=== PATIENT | male | born 1965 | race Caucasian/White ===

== ENCOUNTER 2017-03-30 08:01 | Emergency (ER) | payer BC ==
[~2017-03-30] VITALS: Ht 177.8 cm; Wt 171.1 kg
[~2017-03-30 08:01] MED LIST: ATEN-175 PO; HYDC25 PO
[2017-03-30 08:04] VITALS: TEMP 36.5; Ht 177.8 cm; Wt 171.1 kg
[2017-03-30] MEDS ORDERED: ATEN50TA8 PO (08:17)
[2017-03-30] MEDS ORDERED: HYDR25TA5 PO (08:17)
[2017-03-30] MEDS ORDERED: SODIUM CHLORIDE 0.9% 1000ML 1,000 ML IV ONE (08:30)
[2017-03-30 09:01] LABS: BASO % 0.3 %; BASO ABS # 0.02 K/uL (0-0.2); COMPLETE YES; EOS % 1.4 %; HEMATOCRIT 43.7 % (42-52); IG% 0.5 %; LYMPH % 25.5 %; LYMPH ABS # 1.46 K/uL (1.2-3.4); MEAN CELL VOLUME 85.9 fL (80-100); MEAN CORPUSCULAR HEMOGLOBIN 27.9 pg (25-34); MEAN CORPUSCULAR HGB CONC 32.5 g/dl (32-36); MEAN PLATELET VOLUME 9.1 fL (7.4-10.4); MONO % 10.3 %; PLATELET COUNT 127 K/uL (130-400); RED BLOOD COUNT 5.09 M/uL (4.7-6.1); WHITE BLOOD COUNT 5.72 K/uL (4.8-10.8)
[2017-03-30 09:10] LABS: PARTIAL THROMBOPLASTIN RATIO 1.1; PROTHROMBIN TIME (PATIENT) 10.8 SECONDS (9.0-12.0)
[2017-03-30 09:23] LABS: CALCIUM 8.8 mg/dl (8.5-10.1); CREATININE 0.97 mg/dl (0.60-1.40); POTASSIUM 3.8 mmol/L (3.5-5.1)
--- NOTE | 2017-03-30 09:40 | DIAGNOSTIC IMAGING REPORT ---
ULTRASOUND VENOUS DOPPLER ULTRASOUND OF THE LEFT LOWER EXTREMITY CLINICAL HISTORY: L lower leg redness and swelling COMPARISON STUDY: No previous studies for comparison. FINDINGS: Real-time and color flow Doppler imaging were performed. Flow was seen within the femoral, popliteal and calf veins with no intraluminal thrombus demonstrated. The saphenous vein is patent. IMPRESSION: No evidence of left lower extremity DVT. Electronically signed by: Yaya Thorne M.D. 03/30/2017 9:39 AM Dictated Date/Time: 03/30/2017 9:34 AM
[2017-03-30] MEDS ORDERED: CEFTRIAXONE SOD INJ 1 GM ADDVIAL IV STA (10:05)
[2017-03-30] MEDS ORDERED: CEPH500C2 PO (10:34)
[2017-03-30 11:26] VITALS: BP 143/80; PULSE 67; O2SAT 98
--- NOTE | 2017-03-30 16:07 | EMERGENCY ROOM VISIT NOTE ---
ED Visit Note First contact with patient: 08:11 Chief Complaint: I have swelling and redness of my left lower leg. History of Present Illness: Mr. Swain a 51-year-old white male who ambulates into the ED complaining of left lower leg swelling, redness and pain. Patient reports last evening approximately 8 PM, after his shower, 12 hours ago , he noted redness and swelling to the anterior and lateral aspect of the left lower leg. Since that time the symptoms have been constant and this morning he noted increase in swelling that is now down around the lateral malleolus. He denies any injuries to the leg. Associated with his redness and swelling he does report he has pain in the same area. He describes his pain as a deep achy sensation. He rates his discomfort 4/10. His pain is nonradiating. His pain worsens with palpation and ambulation. He does not identified any alleviating factors related to the pain. He has not taken any medications for pain prior to arrival at the hospital. He denies any associated symptoms including fevers, chills, sweats, upper respiratory tract symptoms, shortness of breath, chest pain, palpitations , abdominal pain, decreased appetite, nausea, vomiting, lower leg weakness/ numbness/tingling, recent surgery/extended travel, inactivity, previous clots, claudication, cramping. Review of Systems: As noted above in history of present illness. All body systems were reviewed and found to be negative as noted above. Past Medical History: Hypertension Current Medications: Atenolol, hydrochlorothiazide. Allergies to Medications: Patient denies. Social History: Patient is currently employed; he feels safe in his home environment; he denies tobacco use and admits to social alcohol use. Physical Examination: Vital Signs: Date Time Temp Pulse Resp B/P (MAP) Pulse Ox O2 Delivery O2 Flow Rate FiO2 03/30/17 11:26 67 143/80 98 03/30/17 09:04 70 20 151/75 96 Room Air 03/30/17 08:04 36.5 73 20 167/95 96 Room Air GENERAL: 51-year-old male in mild distress due to pain, nontoxic-appearing, afebrile and hemodynamically stable. NEUROLOGICAL: Awake, alert and oriented to person, place and time. Answering questions appropriately and following commands. Good hand eye coordination. SKIN: Warm, Dewayne and pink. Left Lower Leg: Shows a few superficial abrasions that patient does not remember having. The anterior and lateral aspect of the lower leg is erythematous and edematous without lymphangitis. The skin is warm to palpation. HEENT: Atraumatic and normocephalic. PERRLA. Sclera white and conjunctiva pink. Speech normal. No lymphadenopathy. Trachea midline. No jugular venous distention. THORAX: Lungs sounds are clear to auscultation and equal bilaterally with symmetrical chest wall. No wheezing, rales or rhonchi. No crepitus, tenderness , subcutaneous air or deformities noted. HEART: Regular rate and rhythm. No gallops, rubs or murmurs are appreciated. ABDOMEN: Obese, soft and nontender. Positive bowel sounds in all quadrants. No guarding, rigidity or organomegaly. EXTREMITIES: Moves all extremities well on command and with purpose. All distal neurovascular statuses are intact and equal bilaterally. Left Lower Extremity: Please note soft tissue description above under SKIN. No gross bony deformity. No tenderness in the hip, thigh, knee or foot. Mild calf tenderness without cords. Full range of motion at the hip, knee, ankle and foot. Distal pulses, capillary refill and sensation intact throughout the extremity. ED Course: Patient is assessed as noted above. Patient's medication list was reviewed. Laboratory Testing: Test 03/30/17 08:50 Range/Units White Blood Count 5.72 4.8-10.8 K/uL Red Blood Count 5.09 4.7-6.1 M/uL Hemoglobin 14.2 14.0-18.0 g/dL Hematocrit 43.7 42-52 % Mean Corpuscular Volume 85.9 80-100 fL Mean Corpuscular Hemoglobin 27.9 25-34 pg Mean Corpuscular Hemoglobin Concent 32.5 32-36 g/dl Platelet Count 127 130-400 K/uL Mean Platelet Volume 9.1 7.4-10.4 fL Neutrophils (%) (Auto) 62.0 % Lymphocytes (%) (Auto) 25.5 % Monocytes (%) (Auto) 10.3 % Eosinophils (%) (Auto) 1.4 % Basophils (%) (Auto) 0.3 % Neutrophils # (Auto) 3.54 1.4-6.5 K/uL Lymphocytes # (Auto) 1.46 1.2-3.4 K/uL Monocytes # (Auto) 0.59 0.11-0.59 K/uL Eosinophils # (Auto) 0.08 0-0.5 K/uL Basophils # (Auto) 0.02 0-0.2 K/uL RDW Standard Deviation 48.5 36.4-46.3 fL RDW Coefficient of Variation 15.4 11.5-14.5 % Immature Granulocyte % (Auto) 0.5 % Immature Granulocyte # (Auto) 0.03 0.00-0.02 K/uL Prothrombin Time 10.8 9.0-12.0 SECONDS Prothromb Time International Ratio 1.0 0.9-1.1 Activated Partial Thromboplast Time 28.5 21.0-31.0 SECONDS Partial Thromboplastin Ratio 1.1 Sodium Level 141 136-145 mmol/L Potassium Level 3.8 3.5-5.1 mmol/L Chloride Level 105 98-107 mmol/L Carbon Dioxide Level 29 21-32 mmol/L Anion Gap 7.0 3-11 mmol/L Blood Urea Nitrogen 18 7-18 mg/dl Creatinine 0.97 0.60-1.40 mg/dl Est Creatinine Clear Calc Drug Dose 144.6 ml/min Estimated GFR () 105.1 Estimated GFR (Non- 90.7 BUN/Creatinine Ratio 19.0 10-20 Random Glucose 87 70-99 mg/dl Calcium Level 8.8 8.5-10.1 mg/dl Total Bilirubin 0.5 0.2-1 mg/dl Direct Bilirubin 0.1 0-0.2 mg/dl Aspartate Amino Transf (AST/SGOT) 14 15-37 U/L Alanine Aminotransferase (ALT/SGPT) 25 12-78 U/L Alkaline Phosphatase 75 45-117 U/L Total Protein 6.9 6.4-8.2 gm/dl Albumin 3.3 3.4-5.0 gm/dl Blood Culture: Pending Left Lower Leg Venous Doppler Ultrasound: Was reviewed by myself and read by the radiologist showing no evidence of left lower extremity DVT. Patient was hydrated with normal saline and received 1 g of ceftriaxone IV for antibiotic coverage. Patient was offered pain medication and refused. Patient's case was reviewed with Dr. Lloyd; we agreed on diagnostic approach , treatment, disposition and plan. Patient was educated about today's findings and instructed on his treatment plan ; he verbalizes understanding and agreement with this plan. Clinical Impression: Left lower leg cellulitis. Decision-Making: Initially my differential diagnosis I considered cellulitis, DVT, wound infection and other causes. Disposition: Patient discharged home in stable condition; prior to departure he was reassessed and subjectively reported he was pain and symptom-free. Plan: Patient was encouraged to alternate ibuprofen and acetaminophen every 3 hours as needed for a. Patient was prescribed Keflex 500 mg 4 times a day for 10 days. Patient was educated on signs of worsening infection. Patient was encouraged to follow-up with his PCP for recheck in 36-48 hours. Patient was encouraged return ED for any signs of worsening infection or any new /concerning symptoms.
== END 2017-03-30 11:28 | disposition home or self-care (01) ==
LOC: C.EDB 08:04
DX: L03.116 Cellulitis of left lower limb (principal); S80.812A Abrasion, left lower leg, initial encounter; X58.XXXA Exposure to other specified factors, initial encounter; I10 Essential (primary) hypertension

== ENCOUNTER 2017-03-31 08:43 | Emergency (ER) | payer BC ==
[~2017-03-31 08:43] MED LIST changes: -ATEN-175 PO; +ATEN50TA8 PO; +CEPH500C2 PO; -HYDC25 PO; +HYDR25TA5 PO
[2017-03-31 08:44] VITALS: BP 186/94; PULSE 75; TEMP 36.6; O2SAT 95; Ht 177.8 cm
[2017-03-31] MEDS ORDERED: CEPHALEXIN MONOHYDRATE 250 MG CAP PO ONE (09:00)
--- NOTE | 2017-03-31 09:24 | EMERGENCY ROOM VISIT NOTE ---
History Report prepared by Mary: Angela Whitehead Under the Supervision of: Dr. Karey Lloyd D.O. First contact with patient: 08:53 Chief Complaint: EDEMA TO EXTREMITY Stated Complaint: CELLULITIS IN THE LEFT LEG History of Present Illness The patient is a 51 year old male who presents to the Emergency Room with complaints of a persistent infection to his left leg that began several days ago. The patient states that he was evaluated in the emergency department yesterday and was diagnosed with cellulitis. He states that he had a negative ultrasound done on his lower extremities. The patient states that he was placed on Keflex for his cellulitis, but states that he has not been able to fill his prescription yet. He states that he did receive IV antibiotics yesterday while in the emergency department. The patient denies being allergic to any antibiotics. He states that today he feels his skin tighten up when he stands. The patient states that the tightness is alleviated the more he walks. He does not feel that the redness has worsened, but states that his family feels that his redness worsened. The patient denies any fever or chills. He denies any history of cellulitis or diabetes. Source of History: patient Onset: several days ago Position: leg (left) Quality: other (infection) Timing: other (persistent) Associated Symptoms: No fevers, No chills Review of Systems See HPI for pertinent positives & negatives. A total of 10 systems reviewed and were otherwise negative. Past Medical & Surgical Medical Problems: (1) Hypertension (2) Kidney stone Family History Diabetes mellitus FHx: cancer Heart disease Hypertension Kidney disease Kidney stones Lung disease Social History Smoking Status: Never Smoker Smokeless Tobacco Use: No Alcohol Use: occasionally Marital Status: Housing Status: lives with significant other Occupation Status: employed Current/Historical Medications Scheduled Atenolol (Tenormin), 100 MG PO DAILY Cephalexin Monohydrate (Keflex), 500 MG PO QID Hydrochlorothiazide (Hydrochlorothiazide), 25 MG PO DAILY Allergies Coded Allergies: No Known Allergies (Unverified , 03/31/17) Physical Exam Vital Signs Date Time Temp Pulse Resp B/P (MAP) Pulse Ox O2 Delivery O2 Flow Rate FiO2 03/31/17 08:44 36.6 75 20 186/94 95 Room Air Physical Exam GENERAL: Morbidly obese, alert, well appearing, well nourished, no distress, non -toxic EYE EXAM: normal conjunctiva, PERRL and EOM's grossly intact OROPHARYNX: no exudate, no erythema, lips, buccal mucosa, and tongue normal and mucous membranes are moist NECK: supple, no nuchal rigidity, no adenopathy, non-tender LUNGS: Clear to auscultation. Normal chest wall mechanics HEART: no murmurs, S1 normal and S2 normal ABDOMEN: abdomen soft, non-tender, normo-active bowel sounds, no masses, no rebound or guarding. BACK: Back is symmetrical on inspection and there is no deformity, no midline tenderness, no CVA tenderness. SKIN: no rashes and no bruising UPPER EXTREMITIES: upper extremities are grossly normal. LOWER EXTREMITIES: Prior lines of demarcation noted, not warm to touch, no calf tenderness. Minimal erythema bilaterally although per patient and Yogesh Nielsen PA-C improved compared to yesterday. No pitting edema, normal pulses, normal sensory. No joint effusion. NEURO EXAM: Normal sensorium, cranial nerves II-XII grossly intact, normal speech, no gross weakness of arms, no gross weakness of legs. Medical Decision & Procedures Laboratory Results 03/31/17 09:41 Red Blood Count 4.81, Mean Corpuscular Volume 86.3, Mean Corpuscular Hemoglobin 28.3, Mean Corpuscular Hemoglobin Concent 32.8, Mean Platelet Volume 9.1, Neutrophils (%) (Auto) 61.4, Lymphocytes (%) (Auto) 29.0, Monocytes (%) (Auto) 6.5, Eosinophils (%) (Auto) 1.9, Basophils (%) (Auto) 0.6, Neutrophils # (Auto) 3.20, Lymphocytes # (Auto) 1.51, Monocytes # (Auto) 0.34, Eosinophils # (Auto) 0.10, Basophils # (Auto) 0.03 Test 03/31/17 09:41 White Blood Count 5.21 K/uL (4.8-10.8) Red Blood Count 4.81 M/uL (4.7-6.1) Hemoglobin 13.6 g/dL (14.0-18.0) Hematocrit 41.5 % (42-52) Mean Corpuscular Volume 86.3 fL (80-100) Mean Corpuscular Hemoglobin 28.3 pg (25-34) Mean Corpuscular Hemoglobin Concent 32.8 g/dl (32-36) Platelet Count 116 K/uL (130-400) Mean Platelet Volume 9.1 fL (7.4-10.4) Neutrophils (%) (Auto) 61.4 % Lymphocytes (%) (Auto) 29.0 % Monocytes (%) (Auto) 6.5 % Eosinophils (%) (Auto) 1.9 % Basophils (%) (Auto) 0.6 % Neutrophils # (Auto) 3.20 K/uL (1.4-6.5) Lymphocytes # (Auto) 1.51 K/uL (1.2-3.4) Monocytes # (Auto) 0.34 K/uL (0.11-0.59) Eosinophils # (Auto) 0.10 K/uL (0-0.5) Basophils # (Auto) 0.03 K/uL (0-0.2) RDW Standard Deviation 48.5 fL (36.4-46.3) RDW Coefficient of Variation 15.4 % (11.5-14.5) Immature Granulocyte % (Auto) 0.6 % Immature Granulocyte # (Auto) 0.03 K/uL (0.00-0.02) Laboratory results per my review. Medications Administered Medications (Trade) Dose Ordered Sig/[place] Route Start Time Stop Time Status Last Admin Dose Admin Cephalexin Monohydrate (Keflex Cap) 500 mg NOW ONCE PO 03/31/17 09:00 03/31/17 09:02 DC 03/31/17 09:53 500 MG ED Course 0854: The patient was evaluated in room B8. A complete history and physical exam was performed. 0900: Ordered Keflex Cap 500 mg PO. 1007: I reevaluated the patient and he is resting comfortably. I discussed the exam findings with him and I discussed the treatment plan. He verbalized complete understanding and agreement. He is ready to go home. Medical Decision Differential diagnosis includes etiologies such as cellulitis, abscess, MRSA infection, DVT, necrotizing fasciitis, dermatitis, drug eruption, as well as others were entertained. No evidence of worsening infection, no systemic symptoms. Pt anxious. No hx of MRSA and not a known diabetic. CBC without leukocytosis Doppler yesterday negative. Yogesh Nielsen examined legs at bedside also and stated improved compared to his exam and visit yesterday. Pt had one blood culture with gram + cocci, likely contaminate, repeats were drawn as a precaution. Pt given dose of keflex here. Discussed sx to watch/return for, f/u with PCP, he verbalized understanding and was agreeable with plan. Medication Reconcilliation Current Medication List: was personally reviewed by me Blood Pressure Screening Patient's blood pressure: Elevated blood pressure Blood pressure disposition: Referred to PCP Impression Primary Impression: Cellulitis Additional Impression: Obesity Scribe Attestation The scribe's documentation has been prepared under my direction and personally reviewed by me in its entirety. I confirm that the note above accurately reflects all work, treatment, procedures, and medical decision making performed by me. Departure Information Dispostion Home / Self-Care Referrals Kaleb Hernandez PA-C (PCP) Forms HOME CARE DOCUMENTATION FORM, IMPORTANT VISIT INFORMATION, WORK / SCHOOL INSTRUCTIONS Patient Instructions My [facility] Additional Instructions Please continue the antibiotics as prescribed. Please consider taking a probiotic daily while you're on antibiotics. Please drink plenty of water. Please elevate your legs when seated or resting. If you have any worsening redness or warmth, the redness spreads outside the previously drawn lines, you develop fevers or chills, numbness or tingling, nausea or vomiting, or any other new concerns, please return the emergency room. Problem Qualifiers Primary Impression: Cellulitis Site of cellulitis: extremity Site of cellulitis of extremity: lower extremity Laterality: unspecified laterality Qualified Codes: L03.119 - Cellulitis of unspecified part of limb Additional Impression: Obesity Obesity type: due to excess calories Obesity classification: unspecified obesity classification Serious obesity comorbidity presence: without serious comorbidity Qualified Codes: E66.09 - Other obesity due to excess calories
[2017-03-31 10:00] LABS: BASO % 0.6 %; BASO ABS # 0.03 K/uL (0-0.2); COMPLETE YES; EOS % 1.9 %; HEMATOCRIT 41.5 % (42-52); IG% 0.6 %; LYMPH ABS # 1.51 K/uL (1.2-3.4); MEAN CELL VOLUME 86.3 fL (80-100); MEAN CORPUSCULAR HEMOGLOBIN 28.3 pg (25-34); MEAN CORPUSCULAR HGB CONC 32.8 g/dl (32-36); MEAN PLATELET VOLUME 9.1 fL (7.4-10.4); MONO % 6.5 %; NEUT % 61.4 %; PLATELET COUNT 116 K/uL (130-400); RED BLOOD COUNT 4.81 M/uL (4.7-6.1); WHITE BLOOD COUNT 5.21 K/uL (4.8-10.8)
== END 2017-03-31 10:20 | disposition home or self-care (01) ==
LOC: C.EDB 08:44
DX: L03.116 Cellulitis of left lower limb (principal); I10 Essential (primary) hypertension; Z87.442 Personal history of urinary calculi; Z98.890 Other specified postprocedural states; Z83.3 Family history of diabetes mellitus; Z80.9 Family history of malignant neoplasm, unspecified; Z82.49 Family history of ischemic heart disease and other diseases of the circulatory system; Z84.1 Family history of disorders of kidney and ureter

== ENCOUNTER 2019-05-27 21:26 | Inpatient (IN) ==
[2019-05-27] MEDS ORDERED: PANTOprazole 40 MG TAB PO STA (21:34)
[2019-05-27] MEDS ORDERED: GI COCKTAIL ED USE PO ONE (21:34)
[2019-05-27 21:48] LABS: Basophils # (auto) 0.03 K/uL (0-0.2); Basophils % (auto) 0.2 %; Eosinophils # (auto) 0.13 K/uL (0-0.5); Eosinophils % (auto) 1.1 %; Hematocrit (blood only) 40.3 % (42-52); Hemoglobin 13.6 g/dL (14.0-18.0); Immature Granulocytes # (auto) 0.06 K/uL (0.00-0.02); Immature Granulocytes % (auto) 0.5 %; Lymphocytes # (auto) 2.32 K/uL (1.2-3.4); Lymphocytes % (auto) 19.2 %; Mean Corpuscular Hemoglobin 28.5 pg (25-34); Mean Corpuscular Hgb Conc 33.7 g/dL (32-36); Mean Corpuscular Volume 84.3 fL (80-100); Monocytes # (auto) 0.67 K/uL (0.11-0.59); Monocytes % (auto) 5.5 %; Neutrophils # (auto) 8.88 K/uL (1.4-6.5); Neutrophils % (auto) 73.5 %; Platelet Count 138 K/uL (130-400); RDW Coefficient of Variation 14.4 % (11.5-14.5); RDW Standard Deviation 44.2 fL (36.4-46.3); Red Blood Count 4.78 M/uL (4.7-6.1); White Blood Count 12.09 K/uL (4.8-10.8)
[2019-05-27 21:58] LABS: Partial Thromboplastin Time 27.6 Seconds (21.0-31.0); Prothrombin Time 10.5 Seconds (9.0-12.0)
--- NOTE | 2019-05-27 22:03 | XRay Report ---
XR chest 1V portable CLINICAL HISTORY: Chest Pain dyspnea COMPARISON STUDY: No previous studies for comparison. FINDINGS: Limited study technically due to respiratory somatic motion as well as patient body habitus . Mild cardiomegaly. Prominent pulmonary vasculature. No focal infiltrate. IMPRESSION: Early congestive heart failure The above report was generated using voice recognition software. It may contain grammatical, syntax or spelling errors. Electronically signed by: Alexandr Chong M.D. 05/27/2019 10:01 PM
[2019-05-27 22:07] LABS: Alanine Aminotransferase 33 U/L (12-78); Albumin Level 3.3 gm/dl (3.4-5.0); Aspartate Aminotransferase 15 U/L (15-37); BUN Creatinine Ratio 16.6 (10-20); Blood Urea Nitrogen 14 mg/dl (7-18); Calcium 8.6 mg/dl (8.5-10.1); Carbon Dioxide 26 mmol/L (21-32); Chloride 106 mmol/L (98-107); Creatinine Clr Calc Pharmacy 197.9 ml/min; Est GFR (African American) 115.9; Glucose 110 mg/dl (70-99); Lipase 107 U/L (73-393); Potassium 3.6 mmol/L (3.5-5.1); Sodium 139 mmol/L (136-145)
[2019-05-27 22:12] LABS: Albumin Globulin Ratio 0.9 (0.9-2); Alkaline Phosphatase 68 U/L (45-117); Bilirubin,Total 0.5 mg/dl (0.2-1); Globulin 3.5 gm/dl (2.5-4.0); Total Protein 6.8 gm/dl (6.4-8.2); Troponin I < 0.015 ng/ml (0-0.045)
--- NOTE | 2019-05-27 22:52 | Emergency Department Note ---
Entered by Keri Villanueva acting as a scribe for Minesh Morocho DO History of Present Illness General Chief complaint: Chest Pain Stated complaint: CHEST PAIN Time Seen by Provider: 05/27/19 21:27 Source: patient and EMS Mode of arrival: EMS Limitations: no limitations History of Present Illness Provider complaint: Chest pain Onset (ago): hour(s) 3 Location: chest Radiation: non-radiation Pain Consistency: + constant Quality: + constant Associated symptoms: + chest pain (central ) and + cough; no nausea/vomiting The patient is a 54 year old male with past medical history of HTN who presents to the ED with complaints of constant central chest pain that happened 3 hours ago. Per EMS, the patient described his pain as someone sitting on my chest. EMS notes that nitro brought the patients chest pain to 10/10. The patient describes his pain as if he drank too quickly and has something caught in his esophagus. He notes his pain radiates up his face. The patient states he had a stress test done 4 years ago. He notes he has a cough. The patient denies abdominal pain, nausea, vomiting, or history of diabetes or high cholesterol. He states he has family history of heart disease. Home Medications Home Medications Medication Instructions Recorded Confirmed Type atenolol 100 mg PO DAILY 05/27/19 05/27/19 History valsartan-hydrochlorothiazide 1 tab PO DAILY 05/27/19 05/27/19 History Allergies Allergy/AdvReac Type Severity Reaction Status Date / Time banana Allergy Anaphylaxis Unverified 05/27/19 23:17 Past Med/Surg History Medical History Hypertension (Chronic) Family History Other Diabetes Heart disease Hypertension Social History Preferred Language: Beninese Feels Safe at Home: Yes Smoking Status: Never smoker Review of Systems See HPI for pertinent positives & negatives. and A total of 10 systems reviewed and were otherwise negative Physical Exam Vital Signs Vital Signs - 24 hr 05/27/19 21:33 05/27/19 22:00 05/27/19 22:30 Temperature 37.1 C Temperature Source Oral Sepsis Recent Fever Within 48 Hours No Sepsis New/Unexplained Change in Mental Status No Sepsis Action Taken by Nursing No Action Required Pulse Rate 83 81 77 Pulse Rate [Right Finger] Respiratory Rate 24 21 30 H Respiratory Effort / Characteristics Blood Pressure 173/81 H 150/72 H Blood Pressure Mean 111 98 Pulse Oximetry 93 93 94 Oxygen Delivery Method Room Air Room Air Room Air 05/27/19 23:20 Temperature Temperature Source Sepsis Recent Fever Within 48 Hours Sepsis New/Unexplained Change in Mental Status Sepsis Action Taken by Nursing Pulse Rate Pulse Rate [Right Finger] 76 Respiratory Rate 22 Respiratory Effort / Characteristics Non-Labored Blood Pressure Blood Pressure Mean Pulse Oximetry 95 Oxygen Delivery Method Room Air GENERAL: Patient is awake alert in no acute distress patient is resting comfortably and showing no signs of anxiety EYES: The conjunctivae are clear. The pupils are round and reactive. EARS, NOSE, MOUTH AND THROAT: The nose is without any evidence of any deformity. Mucous membranes are moist tongue is midline NECK: The neck is nontender and supple. RESPIRATORY: Diminished breath sounds are noted throughout. There were rales at both bases. CARDIOVASCULAR: Regular rate and rhythm noted there no murmurs rubs or gallops normal S1 normal S2 GASTROINTESTINAL: The abdomen is soft. Bowel sounds are present in all quadrants. Abdomen is nontender MUSCULOSKELETAL/EXTREMITIES: There is no evidence of gross deformity full range of motion is noted in the hips and shoulders SKIN: There is no obvious evidence of any rash. Pedal edema was noted bilaterally. NEUROLOGIC: Patient is awake alert and oriented x3. Course 2127: The patient was evaluated in room B2. A complete history and physical exam was performed. 2257: Upon reevaluation, the patient is resting comfortably. I discussed laboratory and radiographic results with him. The patient verbalized agreement of the treatment plan. The patient will be evaluated for further management and care. 2300: I discussed the patient's case [facility] He will evaluate the patient for further management. Administered Medications Discontinued Medications Al Hydrox/Mg Hydrox/Simethicone () 1 dose PO ONE ONE Stop: 05/27/19 21:35 Last Admin: 05/27/19 21:44 Dose: 1 dose Documented by: [id number] Albuterol (Duoneb) 3 ml NEB NOW STA Stop: 05/27/19 23:06 Last Admin: 05/27/19 23:18 Dose: 3 ml Documented by: [id number] Furosemide (Lasix) 40 mg IV ONE ONE Stop: 05/27/19 23:16 Last Admin: 05/27/19 23:33 Dose: 40 mg Documented by: [id number] Pantoprazole Sodium (Protonix) 40 mg PO NOW STA Stop: 05/27/19 21:35 Last Admin: 05/27/19 21:44 Dose: 40 mg Documented by: [id number] Potassium Chloride (Klor-Con M20) 40 meq PO NOW STA Stop: 05/27/19 23:48 Last Admin: 05/28/19 00:24 Dose: 40 meq Documented by: [id number] Medical Decision Making Differential Diagnosis Differential diagnosis: Etiologies such as cardiac ischemia, aortic dissection, pulmonary embolism, pneumonia, pneumothorax, musculoskeletal, infections, pericarditis, myocarditis, esophageal rupture, gastrointestinal, as well as others were entertained. Medical Records Attestation: I reviewed the patient's medical records. Home Medications Current Medication List: was personally reviewed by me Laboratory Data Attestation: I reviewed the patient's lab results. Result diagrams: 05/27/19 21:35 05/27/19 21:35 Lab Results 05/27/19 05/27/19 05/27/19 Range/Units 21:35 21:35 21:35 WBC 12.09 H (4.8-10.8) K/uL RBC 4.78 (4.7-6.1) M/uL Hgb 13.6 L (14.0-18.0) g/dL Hct 40.3 L (42-52) % MCV 84.3 (80-100) fL MCH 28.5 (25-34) pg MCHC 33.7 (32-36) g/dL RDW Std Deviation 44.2 (36.4-46.3) fL RDW Coeff of Jessica 14.4 (11.5-14.5) % Plt Count 138 (130-400) K/uL MPV 9.0 (7.4-10.4) fL Immature Gran % (Auto) 0.5 % Neut % (Auto) 73.5 % Lymph % (Auto) 19.2 % [place] % (Auto) 5.5 % Eos % (Auto) 1.1 % Baso % (Auto) 0.2 % Immature Gran # (Auto) 0.06 H (0.00-0.02) K/uL Neut # (Auto) 8.88 H (1.4-6.5) K/uL Lymph # (Auto) 2.32 (1.2-3.4) K/uL [place] # (Auto) 0.67 H (0.11-0.59) K/uL Eos # (Auto) 0.13 (0-0.5) K/uL Baso # (Auto) 0.03 (0-0.2) K/uL PT 10.5 (9.0-12.0) Seconds INR 1.0 (0.9-1.1) APTT 27.6 (21.0-31.0) Seconds PTT Ratio 1.0 Sodium 139 (136-145) mmol/L Potassium 3.6 (3.5-5.1) mmol/L Chloride 106 (98-107) mmol/L Carbon Dioxide 26 (21-32) mmol/L Anion Gap 7.0 (3-11) BUN 14 (7-18) mg/dl Creatinine 0.84 (0.6-1.4) mg/dl Est Cr Clr Drug Dosing 197.9 ml/min Est GFR ( Amer) 115.9 Est GFR (Non-Af Amer) 100.0 BUN/Creatinine Ratio 16.6 (10-20) Glucose 110 H (70-99) mg/dl Calcium 8.6 (8.5-10.1) mg/dl Magnesium 2.1 (1.8-2.4) mg/dl Total Bilirubin 0.5 (0.2-1) mg/dl AST 15 (15-37) U/L ALT 33 (12-78) U/L Alkaline Phosphatase 68 (45-117) U/L Troponin I < 0.015 (0-0.045) ng/ml Total Protein 6.8 (6.4-8.2) gm/dl Albumin 3.3 L (3.4-5.0) gm/dl Globulin 3.5 (2.5-4.0) gm/dl Albumin/Globulin Ratio 0.9 (0.9-2) Lipase 107 (73-393) U/L TSH 5.290 H (0.300-4.500) uIu/ml Free T4 0.92 (0.8-1.6) ng/dl Imaging Data Radiologist's Impression: Radiology results as stated below per my review and the radiologist's interpretation: XR chest 1V portable CLINICAL HISTORY: Chest Pain dyspnea COMPARISON STUDY: No previous studies for comparison. FINDINGS: Limited study technically due to respiratory somatic motion as well as patient body habitus. Mild cardiomegaly. Prominent pulmonary vasculature. No focal infiltrate. IMPRESSION: Early congestive heart failure The above report was generated using voice recognition software. It may contain grammatical, syntax or spelling errors. Electronically signed by: Alexandr Chong M.D. 05/27/2019 10:01 PM ECG Data Attestation: I personally reviewed and interpreted this ECG as follows: Indication: chest pain Rate (beats per minute): 84 Rhythm: normal sinus Findings: no ST depression, no ST elevation and no ectopy Comparison ECG Date: from (09/29/18) Change: no significant change Blood Pressure Blood Pressure Findings: Elevated blood pressure Blood Pressure Disposition: further management by hospitalist MDM Narrative The patient is a 54-year-old male who presented to the emergency department by ambulance for an evaluation of chest pain. Patient was treated with aspirin and nitroglycerin prior to arrival. He does state that he had some improvement of his pain. The pain is left-sided. The patient was reevaluated multiple times. The patient's EKG showed no acute ischemic changes compared to previous and his initial cardiac biomarker was negative. I discussed the patient's condition with him. I also discussed the limitations of the emergency department work-up for chest pain with him. Given the patient's risk factors I did discuss his case with the on-call [facility] hospitalist. They have agreed to evaluate the patient in the emergency department for further management disposition. Impression & Plan Chest pain Discharge Plan Visit Data Chief Complaint: Chest Pain Stated Complaint: CHEST PAIN ED Provider: Minesh Morocho Discharge Problem: Chest pain Patient Disposition: Being Evaluated by Hospitalist Discharge Instructions Interventions: ED Discharge Assessment Last Done: 05/28/19 00:31 Discharge Problem: Chest pain Qualifiers: Chest pain type: unspecified Qualified Code(s): R07.9 - Chest pain, unspecified The scribe's documentation has been prepared under my direction and personally reviewed by me in its entirety. I confirm that the note above accurately reflects all work, treatment, procedures, and medical decision making performed by me.
[2019-05-27] MEDS ORDERED: FUROSEMIDE 40 MG in SYRINGE 0 ML IV ONE (23:04)
[2019-05-27] MEDS ORDERED: ALBUT/IPRATROP 3MG/0.5MG NEB 3 ML VIAL NEB STA (23:05)
[2019-05-27] MEDS ORDERED: FUROSEMIDE 40 MG/4 ML VIAL IV ONE (23:15)
[2019-05-27 23:31] LABS: Magnesium 2.1 mg/dl (1.8-2.4)
--- NOTE | 2019-05-27 23:38 | History & Physical Report ---
Date of Service May 27, 2019 Assessment & Plan (1) CHF (congestive heart failure): Possible right-sided heart failure Possible undiagnosed pulmonary hypertension secondary to JOHN given history from Hypertension, elevated Chest pain secondary to GERD given patient's description and response to GI cocktail LE swelling secondary to CHF rule out DVT chronic anemia, hemoglobin at baseline PCU Diuretic Rx Strict I/Os, daily weights, CHF education TTE, Cardiology consult RE CHF Outpatient sleep study Facilitate home BP meds, may need dose titration LE venous Dopplers for DVT H2 priya for reflux DVT prophylaxis. Lovenox subcu Full code Patient's requesting updates from providers. Ms. Griselda Swain, contact #[phone]. History of Present Illness Chief Complaint: Chest pain, S OB Primary Care Provider: Alphonso Jacobo MD History obtained from patient, family, and records. Medical history significant for hypertension, obesity, snoring, chronic anemia (baseline hemoglobin of 13). Patient was out in the porch last night with family when he noted sudden onset chest pressure radiating to his neck similar to discomfort with some shortness of breath. Increasing fluid retention, leg swelling over the last few weeks. No cough, no fever, no chills. No relief with aspirin and nitroglycerin administration by EMS. Chest pain relieved by GI cocktail given at the ER which resulted in burping. gives history of snoring symptoms at home and apneic episodes. Patient still has to schedule outpatient sleep study. 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 Allergies Allergy/AdvReac Type Severity Reaction Status Date / Time banana Allergy Anaphylaxis Unverified 05/27/19 23:17 Home Medications Home Medications Medication Instructions Recorded Confirmed Type atenolol 100 mg PO DAILY 05/27/19 05/27/19 History valsartan-hydrochlorothiazide 1 tab PO DAILY 05/27/19 05/27/19 History Past Med/Surg History Family History Other Diabetes Heart disease Hypertension Social History Preferred Language: Lao Communication Ability: Effective 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 Beliefs That Will Affect Care: None Current Living Situation: Spouse Other Information That Helps Us Care for You: No Feels Safe at Home: Yes Safety Concerns: Feels Safe At This Time Smoking Status: Never smoker Do You Dip or Chew Tobacco: Yes (1 can q3days) ; Hx Alcohol Use: Yes Alcohol type: beer Review of Systems Review of Systems: As per HPI, all 10 systems reviewed, all other ROS negative Physical Exam Physical Exam: GENERAL: Comfortable, morbidly obese, no respiratory distress SKIN: Normal color, warm HEENT: [place] palpebral conjunctivae, no ptosis, dry buccal mucosa NECK : Supple, short neck, no tenderness CHEST : Decreased breath sounds , no tenderness HEART : RRR, no obvious murmurs ABDOMEN: distention, nontender EXTREMITIES : Bilateral LE swelling, no LE tenderness, no other conspicuous deformities noted NEUROLOGIC : Coherent, no facial asymmetry, no other gross focality Results & Data Vital Signs (Past 12 Hours) Vital Signs Temp Pulse Pulse Resp BP Pulse Ox 05/27/19 23:20 76 22 95 05/27/19 22:30 77 30 H 94 05/27/19 22:00 81 21 150/72 H 93 05/27/19 21:33 37.1 C 83 24 173/81 H 93 Laboratory Results Laboratory Results WBC 12.09 K/uL (4.8-10.8) H 05/27/19 21:35 RBC 4.78 M/uL (4.7-6.1) 05/27/19 21:35 Hgb 13.6 g/dL (14.0-18.0) L 05/27/19 21:35 Hct 40.3 % (42-52) L 05/27/19 21:35 MCV 84.3 fL (80-100) 05/27/19 21:35 MCH 28.5 pg (25-34) 05/27/19 21:35 MCHC 33.7 g/dL (32-36) 05/27/19 21:35 RDW Std Deviation 44.2 fL (36.4-46.3) 05/27/19 21:35 RDW Coeff of Jessica 14.4 % (11.5-14.5) 05/27/19 21:35 Plt Count 138 K/uL (130-400) 05/27/19 21:35 MPV 9.0 fL (7.4-10.4) 05/27/19 21:35 Immature Gran % (Auto) 0.5 % 05/27/19 21:35 Neut % (Auto) 73.5 % 05/27/19 21:35 Lymph % (Auto) 19.2 % 05/27/19 21:35 [place] % (Auto) 5.5 % 05/27/19 21:35 Eos % (Auto) 1.1 % 05/27/19 21:35 Baso % (Auto) 0.2 % 05/27/19 21:35 Immature Gran # (Auto) 0.06 K/uL (0.00-0.02) H 05/27/19 21:35 Neut # (Auto) 8.88 K/uL (1.4-6.5) H 05/27/19 21:35 Lymph # (Auto) 2.32 K/uL (1.2-3.4) 05/27/19 21:35 [place] # (Auto) 0.67 K/uL (0.11-0.59) H 05/27/19 21:35 Eos # (Auto) 0.13 K/uL (0-0.5) 05/27/19 21:35 Baso # (Auto) 0.03 K/uL (0-0.2) 05/27/19 21:35 PT 10.5 Seconds (9.0-12.0) 05/27/19 21:35 INR 1.0 (0.9-1.1) 05/27/19 21:35 APTT 27.6 Seconds (21.0-31.0) 05/27/19 21:35 PTT Ratio 1.0 05/27/19 21:35 Sodium 139 mmol/L (136-145) 05/27/19 21:35 Potassium 3.6 mmol/L (3.5-5.1) 05/27/19 21:35 Chloride 106 mmol/L (98-107) 05/27/19 21:35 Carbon Dioxide 26 mmol/L (21-32) 05/27/19 21:35 Anion Gap 7.0 (3-11) 05/27/19 21:35 BUN 14 mg/dl (7-18) 05/27/19 21:35 Creatinine 0.84 mg/dl (0.6-1.4) 05/27/19 21:35 Est Cr Clr Drug Dosing 197.9 ml/min 05/27/19 21:35 Est GFR ( Amer) 115.9 05/27/19 21:35 Est GFR (Non-Af Amer) 100.0 05/27/19 21:35 BUN/Creatinine Ratio 16.6 (10-20) 05/27/19 21:35 Glucose 110 mg/dl (70-99) H 05/27/19 21:35 Calcium 8.6 mg/dl (8.5-10.1) 05/27/19 21:35 Magnesium 2.1 mg/dl (1.8-2.4) 05/27/19 21:35 Total Bilirubin 0.5 mg/dl (0.2-1) 05/27/19 21:35 AST 15 U/L (15-37) 05/27/19 21:35 ALT 33 U/L (12-78) 05/27/19 21:35 Alkaline Phosphatase 68 U/L (45-117) 05/27/19 21:35 Troponin I < 0.015 ng/ml (0-0.045) 05/27/19 21:35 Total Protein 6.8 gm/dl (6.4-8.2) 05/27/19 21:35 Albumin 3.3 gm/dl (3.4-5.0) L 05/27/19 21:35 Globulin 3.5 gm/dl (2.5-4.0) 05/27/19 21:35 Albumin/Globulin Ratio 0.9 (0.9-2) 05/27/19 21:35 Lipase 107 U/L (73-393) 05/27/19 21:35 TSH 5.290 uIu/ml (0.300-4.500) H 05/27/19 21:35 Diagnostic Findings Chest x-ray : Early congestive heart failure EKG as per my interpretation : Rate 85, NSR, normal axis, inferior infarct
[2019-05-27 23:44] LABS: T4 Free Thyroxine 0.92 ng/dl (0.8-1.6)
[2019-05-27] MEDS ORDERED: POTASSIUM CHLORIDE 20 MEQ TABCR PO STA (23:47)
[2019-05-28] MEDS ORDERED: MoRPHine SULFATE 4 MG/ML 1 ML CARP\\VIAL IV PRN (01:38)
[2019-05-28] MEDS ORDERED: NITROGLYCERIN SL 0.4 MG/TAB TAB SL PRN (01:38)
[2019-05-28] MEDS ORDERED: PROMETHAZINE HCL 12.5 MG in SODIUM CHLORIDE 0.9% 50 ML IV PRN (01:38)
[2019-05-28] MEDS ORDERED: TRAMADOL HCL 50 MG TABLET PO PRN (01:38)
[2019-05-28] MEDS ORDERED: ACETAMINOPHEN 325 MG TAB PO PRN (01:38)
[2019-05-28] MEDS ORDERED: ALBUT/IPRATROP 3MG/0.5MG NEB 3 ML VIAL NEB PRN (01:38)
[2019-05-28] MEDS ORDERED: VALSARTAN 80 MG TAB PO SCH ×2 (02:00→09:00)
[2019-05-28 05:04] LABS: Basophils # (auto) 0.02 K/uL (0-0.2); Basophils % (auto) 0.2 %; Eosinophils # (auto) 0.08 K/uL (0-0.5); Eosinophils % (auto) 0.7 %; Hematocrit (blood only) 40.1 % (42-52); Immature Granulocytes # (auto) 0.03 K/uL (0.00-0.02); Immature Granulocytes % (auto) 0.3 %; Lymphocytes % (auto) 19.7 %; Mean Corpuscular Hgb Conc 32.4 g/dL (32-36); Mean Corpuscular Volume 86.4 fL (80-100); Mean Platelet Volume 9.4 fL (7.4-10.4); Monocytes % (auto) 7.2 %; Neutrophils # (auto) 8.01 K/uL (1.4-6.5); Neutrophils % (auto) 71.9 %; Platelet Count 126 K/uL (130-400); RDW Coefficient of Variation 14.8 % (11.5-14.5); RDW Standard Deviation 46.4 fL (36.4-46.3); Red Blood Count 4.64 M/uL (4.7-6.1); White Blood Count 11.14 K/uL (4.8-10.8)
[2019-05-28 05:16] LABS: Partial Thromboplastin Ratio 1.1; Partial Thromboplastin Time 28.7 Seconds (21.0-31.0)
[2019-05-28 05:21] LABS: BUN Creatinine Ratio 14.6 (10-20); Blood Urea Nitrogen 13 mg/dl (7-18); Calcium 8.4 mg/dl (8.5-10.1); Carbon Dioxide 30 mmol/L (21-32); Chloride 106 mmol/L (98-107); Creatinine Clr Calc Pharmacy 182.3 ml/min; Est GFR (African American) 112.6; Est GFR (Non-African American) 97.2; Glucose 100 mg/dl (70-99); Sodium 139 mmol/L (136-145)
[2019-05-28 05:26] LABS: Chol HDL Ratio 4; Cholesterol 147 mg/dl (0-200); HDL Cholesterol 36 mg/dl; LDL Cholesterol Calculated 99 mg/dl; Triglycerides 59 mg/dl (0-150); Troponin I < 0.015 ng/ml (0-0.045); VLDL Cholesterol 12 mg/dl
--- NOTE | 2019-05-28 08:57 | Cardiology Consultation ---
Date of Consultation May 28, 2019 Assessment & Plan (1) Obesity: (2) Chest pain: (3) CHF (congestive heart failure): (4) Hypertension: The patient's pain dissipated after GI cocktail in the emergency department. His cardiac markers were negative x2 and he has no acute EKG changes. He is currently having a resting echocardiogram which I will review. If that study is unremarkable I think he can be discharged to undergo an out patient stress test. History of Present Illness Attending Physician: Ryan Chinchilla MD History of Present Illness This is a 54-year-old male patient who was admitted with chest pain. He has a history of morbid obesity and hypertension. He is been tested for sleep apnea several years ago and it was negative. His primary care physician however, would like him to be retested. He has no history of diabetes or kidney disease. He takes no cholesterol medications. Yesterday evening he had a large spaghetti dinner. Later on late into the evening he developed chest discomfort and a pressure in his chest. He is brought to the emergency department. He states his discomfort lasted until he was given a GI cocktail in the emergency department after which he belched and felt better and his discomfort dissipated. After admission his EKG shows no acute changes in his cardiac markers are negative. He feels well this morning. 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 Physical Exam Physical Exam: General: no acute distress, morbidly obese male patient sitting in a chair Head: normocephalic, no masses, lesions, tenderness or abnormalities Eyes: conjunctiva are pink and non-injected, sclera clear Neck: supple, no adenopathy, no bruits, normal jugular venous pulse, no hepatojugular reflux Chest: normal shape and normal respiratory effort Lungs: clear to auscultation and percussion Cardiac Exam: - regular rate & rhythm, no murmurs gallops or rubs - normal S1, normal S2 Pulses: 2(+) throughout Abdomen: abdomen soft, non-tender, no abnormal masses and no hepatosplenomegaly Musculoskeletal: no gait disturbance, no joint inflammation, no deforming arthritis Extremities: no edema and no cyanosis Neuro: grossly normal exam Results & Data Vital Signs (Past 12 Hours) Vital Signs Temp Pulse Pulse Resp BP BP Pulse Ox 05/28/19 07:05 36.6 C 82 18 153/83 H 93 05/28/19 04:09 36.5 C 81 20 144/75 H 93 05/28/19 01:20 36.7 C 79 24 179/84 H 92 05/28/19 00:22 76 24 172/82 H 95 05/27/19 23:20 76 22 95 05/27/19 22:30 77 30 H 94 05/27/19 22:00 81 21 150/72 H 93 05/27/19 21:33 37.1 C 83 24 173/81 H 93 Laboratory Results Laboratory Results - last 24 hr 05/27/19 05/27/19 05/27/19 21:35 21:35 21:35 WBC 12.09 H RBC 4.78 Hgb 13.6 L Hct 40.3 L MCV 84.3 MCH 28.5 MCHC 33.7 RDW Std Deviation 44.2 RDW Coeff of Jessica 14.4 Plt Count 138 MPV 9.0 Immature Gran % (Auto) 0.5 Neut % (Auto) 73.5 Lymph % (Auto) 19.2 [place] % (Auto) 5.5 Eos % (Auto) 1.1 Baso % (Auto) 0.2 Immature Gran # (Auto) 0.06 H Neut # (Auto) 8.88 H Lymph # (Auto) 2.32 [place] # (Auto) 0.67 H Eos # (Auto) 0.13 Baso # (Auto) 0.03 PT 10.5 INR 1.0 APTT 27.6 PTT Ratio 1.0 Sodium 139 Potassium 3.6 Chloride 106 Carbon Dioxide 26 Anion Gap 7.0 BUN 14 Creatinine 0.84 Est Cr Clr Drug Dosing 197.9 Est GFR ( Amer) 115.9 Est GFR (Non-Af Amer) 100.0 BUN/Creatinine Ratio 16.6 Glucose 110 H Calcium 8.6 Magnesium 2.1 Total Bilirubin 0.5 AST 15 ALT 33 Alkaline Phosphatase 68 Troponin I < 0.015 Total Protein 6.8 Albumin 3.3 L Globulin 3.5 Albumin/Globulin Ratio 0.9 Triglycerides Cholesterol LDL Cholesterol, Calc VLDL Cholesterol, Calc HDL Cholesterol Cholesterol/HDL Ratio Lipase 107 TSH 5.290 H Free T4 0.92 05/28/19 05/28/19 05/28/19 04:38 04:38 04:38 WBC 11.14 H RBC 4.64 L Hgb 13.0 L Hct 40.1 L MCV 86.4 MCH 28.0 MCHC 32.4 RDW Std Deviation 46.4 H RDW Coeff of Jessica 14.8 H Plt Count 126 L MPV 9.4 Immature Gran % (Auto) 0.3 Neut % (Auto) 71.9 Lymph % (Auto) 19.7 [place] % (Auto) 7.2 Eos % (Auto) 0.7 Baso % (Auto) 0.2 Immature Gran # (Auto) 0.03 H Neut # (Auto) 8.01 H Lymph # (Auto) 2.20 [place] # (Auto) 0.80 H Eos # (Auto) 0.08 Baso # (Auto) 0.02 PT INR APTT 28.7 PTT Ratio 1.1 Sodium 139 Potassium 4.0 Chloride 106 Carbon Dioxide 30 Anion Gap 3.0 BUN 13 Creatinine 0.90 Est Cr Clr Drug Dosing 182.3 Est GFR ( Amer) 112.6 Est GFR (Non-Af Amer) 97.2 BUN/Creatinine Ratio 14.6 Glucose 100 H Calcium 8.4 L Magnesium Total Bilirubin AST ALT Alkaline Phosphatase Troponin I < 0.015 Total Protein Albumin Globulin Albumin/Globulin Ratio Triglycerides 59 Cholesterol 147 LDL Cholesterol, Calc 99 VLDL Cholesterol, Calc 12 HDL Cholesterol 36 Cholesterol/HDL Ratio 4 Lipase TSH Free T4 Medications Administered Current Inpatient Medications Acetaminophen (Tylenol) 650 mg PO Q4H PRN PRN Reason: Pain or Fever Stop: 06/27/19 01:37 Albuterol (Duoneb) 3 ml NEB Q2H PRN PRN Reason: Wheezing Stop: 06/27/19 01:37 Atenolol (Tenormin) 100 mg PO DAILY [facility] Stop: 06/27/19 08:59 Last Admin: 05/28/19 07:44 Dose: 100 mg Documented by: Enoxaparin Sodium (Lovenox) 40 mg SQ QAM [facility] Stop: 06/27/19 08:59 Last Admin: 05/28/19 07:45 Dose: 40 mg Documented by: Promethazine HCl 12.5 mg/ (Sodium Chloride) 50.5 mls @ 202 mls/hr IV Q6H PRN PRN Reason: Nausea And Vomiting Stop: 06/27/19 01:37 Furosemide 40 mg/ Syringe 4 mls @ 4 mls/min IV BID [facility] Stop: 05/29/19 21:00 Last Admin: 05/28/19 08:11 Dose: 4 mls/min Documented by: Morphine Sulfate (Morphine Sulfate) 4 mg IV Q4H PRN PRN Reason: Pain Stop: 06/11/19 01:37 Nitroglycerin (Nitrostat) 0.4 mg SL UD PRN PRN Reason: Chest Pain Stop: 06/27/19 01:37 Potassium Chloride (Klor-Con M10) 20 meq PO BID [facility] Stop: 06/27/19 08:59 Last Admin: 05/28/19 08:10 Dose: 20 meq Documented by: Ranitidine HCl (Zantac) 150 mg PO QAM [facility] Stop: 06/27/19 08:59 Last Admin: 05/28/19 07:45 Dose: 150 mg Documented by: Tramadol HCl (Ultram) 25 - 50 mg PO Q4H PRN PRN Reason: Pain Stop: 06/27/19 01:37 Valsartan (Diovan) 160 mg PO QAM [facility] Stop: 06/27/19 01:59 Last Admin: 05/28/19 02:25 Dose: 160 mg Documented by: (1) Chest pain Chest pain type: unspecified Qualified Code(s): R07.9 - Chest pain, unspecified
[2019-05-28] MEDS ORDERED: FUROSEMIDE 40 MG/4 ML VIAL IV SCH (09:00)
[2019-05-28] MEDS ORDERED: ENOXAPARIN INJ 40 MG/0.4 ML SYR SQ SCH (09:00)
[2019-05-28] MEDS ORDERED: POTASSIUM CHLORIDE 10 MEQ TABCR PO SCH (09:00)
[2019-05-28] MEDS ORDERED: ATENOLOL 50 MG TABLET PO SCH (09:00)
[2019-05-28] MEDS ORDERED: FUROSEMIDE 40 MG in SYRINGE 0 ML IV SCH (09:00)
--- NOTE | 2019-05-28 09:42 | Ultrasound Report ---
BILATERAL LOWER EXTREMITY VENOUS DOPPLER CLINICAL HISTORY: leg swelling COMPARISON STUDY: Left lower extremity venous Doppler ultrasound March 22, 2017. TECHNIQUE: Sonography of the deep venous system of the bilateral lower extremities was performed. Co mpression and augmentation were evaluated. FINDINGS: Exam was compromised by suboptimal penetration. The bilateral common femoral, superficial f emoral and popliteal veins were compressible. Augmentation was normal. Flow was shown within the deep calf vessels. IMPRESSION: No evidence of deep venous thrombus within the bilateral lower extremities. Electronically signed by: Wilfrid Ortega M.D. 05/28/2019 9:41 AM
--- NOTE | 2019-05-28 13:04 | Hospitalist Progress Note ---
Date of Service May 28, 2019 Assessment & Plan (1) CHF (congestive heart failure): Chest Pain: Likely due to GERD Relieved after ingestion of GI cocktail Cardiac Enzymes: X 2: Negative EKG:Non specific ST-T wave changes ECHO pending Needs Stress test as outpatient Appreciate Cardiology Input Patient takes H2 blockers PRN Possible right-sided heart failure Possible undiagnosed pulmonary hypertension secondary to undiagnosed JOHN Chronic B/L LE edema--unchanged per patient No known H/O heart failure ECHO pending Venous Doppler: No DVT Monitor volume status Needs outpatient sleep study Hypertension Slightly elevated on presentation Continue home medications Monitor Chronic Anemia Hb stable Monitor DVT Px: Lovenox SQ Code Status Full code Disposition: Expect to discharge home when stable Subjective Patient is seen and examined at bedside Chest pain/discomfort completely resolved Denies any shortness of breath, dizziness, nausea, vomiting, abdominal pain Discussed with cardiology today Cardiac enzymes negative Review of Systems Review of Systems: All systems reviewed & are unremarkable except as noted in HPI & below Physical Exam Physical Exam: Physical Exam: Vitals signs as noted above General Appearance:Morbidly Obese, no apparent distress Head: normocephalic, Atraumatic Eyes: normal inspection, EOMI Neck: supple, Trachea midline Respiratory/Chest: Normal breath sounds, CTA Cardiovascular: S1, S2, No murmur Abdomen/GI:Soft, Non tender, Bowel sounds present Extremities/Musculoskelatal:normal inspection, B/L LE edema 2+ Neurologic/Psych:AAOX3, grossly no focal neurological deficits Skin: normal color, warm Results & Data Vital Signs (Past 12 Hours) Vital Signs Temp Pulse Pulse Resp BP Pulse Ox 05/28/19 11:05 36.9 C 63 18 139/74 95 05/28/19 10:46 36.6 C 82 18 140/72 93 05/28/19 08:00 76 05/28/19 07:05 36.6 C 82 18 153/83 H 93 05/28/19 04:09 36.5 C 81 20 144/75 H 93 05/28/19 01:20 36.7 C 79 24 179/84 H 92 Laboratory Results Short CBC 05/27/19 05/28/19 Range/Units 21:35 04:38 WBC 12.09 H 11.14 H (4.8-10.8) K/uL Hgb 13.6 L 13.0 L (14.0-18.0) g/dL Hct 40.3 L 40.1 L (42-52) % Plt Count 138 126 L (130-400) K/uL BMP 05/27/19 05/28/19 21:35 04:38 Sodium 139 139 Potassium 3.6 4.0 Chloride 106 106 Carbon Dioxide 26 30 BUN 14 13 Creatinine 0.84 0.90 Glucose 110 H 100 H Calcium 8.6 8.4 L Cardiac Enzymes 05/27/19 05/28/19 Range/Units 21:35 04:38 Troponin I < 0.015 < 0.015 (0-0.045) ng/ml Liver Function 05/27/19 Range/Units 21:35 Total Bilirubin 0.5 (0.2-1) mg/dl AST 15 (15-37) U/L ALT 33 (12-78) U/L Alkaline Phosphatase 68 (45-117) U/L Albumin 3.3 L (3.4-5.0) gm/dl
--- NOTE | 2019-05-28 16:10 | Discharge Summary ---
Date of Service May 28, 2019 Admission HPI Per Admitting Provider History obtained from patient, family, and records. Medical history significant for hypertension, obesity, snoring, chronic anemia (baseline hemoglobin of 13). Patient was out in the porch last night with family when he noted sudden onset chest pressure radiating to his neck similar to discomfort with some shortness of breath. Increasing fluid retention, leg swelling over the last few weeks. No cough, no fever, no chills. No relief with aspirin and nitroglycerin administration by EMS. Chest pain relieved by GI cocktail given at the ER which resulted in burping. gives history of snoring symptoms at home and apneic episodes. Patient still has to schedule outpatient sleep study. 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 Admission Exam Per Admitting Provider GENERAL: Comfortable, morbidly obese, no respiratory distress SKIN: Normal color, warm HEENT: [place] palpebral conjunctivae, no ptosis, dry buccal mucosa NECK : Supple, short neck, no tenderness CHEST : Decreased breath sounds , no tenderness HEART : RRR, no obvious murmurs ABDOMEN: distention, nontender EXTREMITIES : Bilateral LE swelling, no LE tenderness, no other conspicuous deformities noted NEUROLOGIC : Coherent, no facial asymmetry, no other gross focality Principal Diagnosis Chest Pain Likely GERD Discharge Data Allergies Allergy/AdvReac Type Severity Reaction Status Date / Time banana Allergy Anaphylaxis Unverified 05/27/19 23:17 Consultations 05/27/19 23:02 ED Decision to Admit Stat 05/28/19 01:38 Consult Cardiology Routine Procedures Performed Venous Doppler: No evidence of deep venous thrombus within the bilateral lower extremities. CXR: Early congestive heart failure Ordered Studies 05/27/19 23:38 US venous doppler LE Urgent Hospital Course (1) CHF (congestive heart failure): Chest Pain: Likely due to GERD Relieved after ingestion of GI cocktail Cardiac Enzymes: X 2: Negative EKG:Non specific ST-T wave changes ECHO: No wall motion abnormality Needs Stress test as outpatient Appreciate Cardiology Input Patient takes H2 blockers PRN Possible right-sided heart failure Possible undiagnosed pulmonary hypertension secondary to undiagnosed JOHN Chronic B/L LE edema--unchanged per patient No known H/O heart failure ECHO pending Venous Doppler: No DVT Monitor volume status Needs outpatient sleep study Hypertension Slightly elevated on presentation Continue home medications Monitor Chronic Anemia Hb stable Monitor DVT Px: Lovenox SQ Code Status Full code Disposition: Expect to discharge home when stable Total Time Total Time Spent Total Time Spent (In Minutes): 39 minutes Total Time Includes: Examination of the Patient, Discharge Planning, Medication Reconciliation, Communication With Other Providers and Other Discharge Plan Discharge Items Patient Disposition: Home - Self-Care Reason For Visit: CHF Discharge Diagnosis: Chest Pain Likely GERD Activity: Resume your previous activity Exercise/Sports: Gradually increase as tolerated Non-emergency contact: Primary Care Provider and Manager Security Call non-emergency contact if: you have any medication questions, your symptoms worsen, your pain is not controlled, your pain is worsening, your pain is u nusual for you, your pain is concerning for you and you have a fever Follow-up/Referrals: Alphonso Jacobo MD [Primary Care Provider] - Diet: Heart Healthy Addtl Attending Provider Instructions: Follow up with your Primary Care Physician Pedro Chowdhury on Jun 01, 2019 at 10:55 AM Follow up with your Manager Security to get stress test as outpatient Get sleep Study as outpatient as advised Seek immediate medical attention if your symptoms reoccur or worsen Pending Studies at Discharge: No Stand-Alone Forms: Call Back Authorization, [facility], Smoking Cessation Medications and DC Order Prescriptions: New ranitidine HCl 150 mg tablet 150 mg PO Q12H PRN (Reason: heartburn) Qty: 60 RF: 0 Continued atenolol 100 mg Tablet 100 mg PO DAILY RF: 0 valsartan-hydrochlorothiazide 160-25 mg tablet 1 tab PO DAILY RF: 0 Discharge Orders: Discharge Order (Routine); Ordered 05/28/19 Ordered By: Ryan Chinchilla Admission Data Admit Date/Time: 05/27/19 23:42 Attending Provider: Ryan Chinchilla Admit Provider: Rey Keyes Primary Care Provider: Alphonso Jacobo I. Other Providers: Rey Keyes ; Enzo Blount Other Interventions: Discharge Summary Assessment (RN) Last Done: 05/28/19 10:46
== END 2019-05-28 16:54 | disposition home or self-care (01) | DRG 292 ==
LOC: ED 21:26 → SUATTDRO 23:42 → 2S 23:42 → 2E 05-28 00:31